=== PATIENT | female | born 1960 | race Caucasian/White ===

== ENCOUNTER 2018-06-14 00:40 | Day surgery (SDC) | payer OTHER, MEDICAID ==
[2018-06-12 11:36] LABS: BASOPHIL % 0.9 % (0.0-0.2); EOSINOPHIL # 0.1 10^3/uL (0.0-0.2); EOSINOPHIL % 1.9 % (0.0-5.0); LYMPHOCYTES # 1.5 10^3/uL (1.0-4.8); LYMPHOCYTES % 35.9 % (24.0-44.0); MEAN CELL HGB 31.3 pg (26-34); MEAN CELL HGB CONCENTRATION 34.2 g/dL (33-37); MEAN CORP VOLUME 91.4 fL (78-100); MONOCYTES # 0.4 10^3/uL (0.3-0.8); MONOCYTES % 10.3 % (5.0-12.0); NEUTROPHIL # 2.2 10^3/uL (1.8-7.7); NEUTROPHILS % 50.8 % (41.0-85.0); RED CELL DISTRIBUTION WIDTH 12.9 % (11.5-14.5); WHITE BLOOD CELL 4.3 10^3/uL (4.5-11.0)
[2018-06-12 11:56] VITALS: BP 121/67
--- NOTE | 2018-06-12 13:47 | PCM.EKG ---
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 Reading MD: Adeel Ashley Measurements Intervals [place] Rate: 78 P: 51 AR: 196 QRS: 34 QRSD: 94 T: 36 QT: 376 QTc: 428 Interpretive Statements Normal sinus rhythm Normal ECG No previous ECG available for comparison Electronically Signed On 06-12-2018 15:12:06 CDT by Adeel Ashley Please click the below link to view image of tracing.
[2018-06-12 14:14] LABS: CALCIUM 9.2 mg/dL (8.4-10.5); CARBON DIOXIDE 22.6 mmol/L (20.0-32)
[~2018-06-14] VITALS: Ht 185.4 cm; Wt 86.2 kg
[~2018-06-14 00:40] MED LIST: AMIT150T PO; ASPI-667 PO; CHRM1TAB PO; CYCL10TA2 PO; ESOM20CA PO; LEVO100T5 PO; LEVO50TA6 PO; LEVO75TA PO; LISI10TA2 PO; LORA0.5T PO; METF500T17 PO; METOPROLOL; MIRT30TA4 PO; MULT1TAB52 PO; PRAM0.255 PO; PREG200C PO; PREG75CA PO; PROP10TA PO; PROP20TA PO; PROP40TA PO; SIMV10TA3 PO; TURM500C9 PO
[2018-06-14] MEDS ORDERED: LACTATED RINGERS 1,000 ML ONE (05:30)
[2018-06-14] MEDS ORDERED: LACTATED RINGERS 1,000 ML IV SCH (07:00)
[2018-06-14 07:03] VITALS: BP 133/79
[2018-06-14] MEDS ORDERED: LUBI8CAP4 PO (07:05)
[2018-06-14] MEDS ORDERED: OMEP40CA6 PO (07:05)
[2018-06-14] MEDS ORDERED: DECADRON ONE (07:06)
[2018-06-14] MEDS ORDERED: ZOFRAN ONE (07:06)
[2018-06-14] MEDS ORDERED: TORADOL ONE (07:07)
[2018-06-14] MEDS ORDERED: SUBLIMAZE ONE (07:07)
[2018-06-14] MEDS ORDERED: NS 1000ML 1,000 ML ONE (07:07)
[2018-06-14] MEDS ORDERED: DIPRIVAN IV ONE (07:07)
[2018-06-14] MEDS ORDERED: VERSED ONE (07:07)
[2018-06-14] MEDS ORDERED: LIDOCAINE 2% VIAL ONE (07:07)
[2018-06-14] MEDS ORDERED: DILAUDID ONE (07:08)
[2018-06-14] MEDS ORDERED: SODIUM CHLORIDE IR ONE (07:12)
[2018-06-14] MEDS ORDERED: NS 3000ML IRR IR ONE (07:13)
[2018-06-14 09:05] VITALS: BP 92/45
[2018-06-14] MEDS ORDERED: EPHEDRINE SULFATE ONE (09:16)
[2018-06-14 09:20] VITALS: BP 116/54
[2018-06-14] MEDS ORDERED: DILAUDID IV PRN (09:30)
[2018-06-14] MEDS ORDERED: NS 1000ML 1,000 ML SCH (09:30)
[2018-06-14] MEDS ORDERED: SUBLIMAZE IV PRN (09:30)
[2018-06-14 09:35] VITALS: BP 121/54
[2018-06-14 09:50] VITALS: BP 121/54
[2018-06-14 10:04] VITALS: BP_SYST 110; BP_SYST 135; BP_DIAS 59; BP_DIAS 92
--- NOTE | 2018-06-19 20:36 | OPH ---
DATE OF SURGERY: 06/14/2018 PRIMARY SURGEON: Dr. Wall. CAR SALES ASSOCIATE: Basilia Montana. ANESTHESIA USED: General. PREOPERATIVE DIAGNOSIS: Postmenopausal bleeding with an inadequate endometrial biopsy. POSTOPERATIVE DIAGNOSIS: Atrophic endometrial lining. SURGICAL PROCEDURE PERFORMED: Hysteroscopy, dilation and curettage with fluid deficit of 20 mL. SPECIMENS COLLECTED: Endometrial curettings. ESTIMATED BLOOD LOSS: 10 mL. INDICATIONS: This patient had an episode of postmenopausal bleeding. She underwent workup with endometrial biopsy, which showed scant endometrial fragments, which were insufficient to rule out a diagnosis of malignancy. She was counseled on the risks and benefits of hysteroscopy to evaluate the endometrial cavity and she agreed to undergo the procedure. DESCRIPTION OF PROCEDURE: She was taken to the operating room where general anesthesia was administered without difficulty. She was prepared and draped in the dorsal lithotomy position in the normal sterile fashion. A weighted speculum was placed in the posterior aspect of the vagina and a right angle retractor was used to retract the anterior wall of the vagina. The cervix was visualized and grasped with a tenaculum. The uterus was sounded to a depth of 6 cm. Uterus was then dilated to accommodate a 10 mm hysteroscope. The hysteroscope was advanced through the cervix into the endometrial cavity. Normal saline was then used to distend the endometrial cavity. On hysteroscopy, the endometrium appeared atrophic. The right and left tubal ostia were visualized without difficulty and no suspicious lesions were seen. At this point, the hysteroscopy was complete. The hysteroscope was gently withdrawn from the endometrial cavity. A gentle sharp curettage was performed in all 4 quadrants and curettings were sent for pathology. At this point, no active bleeding was seen from the cervical os. The tenaculum was removed and hemostasis was noted at the tenaculum puncture sites. All instruments were then removed from the vagina. All procedure counts were correct x 2. The patient was awakened from anesthesia and taken to the recovery room in stable condition. JANAK WALL MD DR: LEX/jennifer JOB# [id number] RON
== END 2018-06-14 10:12 | disposition home or self-care (01) ==
LOC: SDC 00:40 → LND 06:00 → UNDOADMIN 06:00 → SDC 10:12
PROVIDERS: ATTEND Obstetrics & Gynecology
DX: N95.0 Postmenopausal bleeding (principal); N84.0 Polyp of corpus uteri; E11.9 Type 2 diabetes mellitus without complications; K21.9 Gastro-esophageal reflux disease without esophagitis; I10 Essential (primary) hypertension; F32.9 Major depressive disorder, single episode, unspecified; E66.3 Overweight; Z68.25 Body mass index [BMI] 25.0-25.9, adult; Z98.890 Other specified postprocedural states; Z88.8 Allergy status to other drugs, medicaments and biological substances; Z98.51 Tubal ligation status; Z83.3 Family history of diabetes mellitus; Z82.3 Family history of stroke; Z82.49 Family history of ischemic heart disease and other diseases of the circulatory system
CPT/HCPCS: 36415; 58558; 80048; 82948 ×2; 84443; 85025; 86885; 86900 ×3; 86901; 86921; 88305; 93005; J1100; J1885; J2001; J2250; J2405; J3010; J3490 ×2; J7030 ×3; J7120

== ENCOUNTER 2019-02-08 14:58 | Emergency (ER) | payer OTHER, MEDICAID ==
[~2019-02-08] VITALS: Ht 177.8 cm; Wt 93.0 kg
[~2019-02-08 14:58] MED LIST changes: +LUBI8CAP4 PO; +OMEP40CA6 PO
--- NOTE | 2019-02-08 14:58 | NUR ---
ARRIVAL PATIENT IN ROOM 6, STATES THAT SHE HAS BEEN HAVING ABDOMENAL PAIN FOR THE LAST 2 WEEKS, PATIENT HAS HAD IMAGINE DONE WITH DR. SANTANA. ASSESSMENT COMPELTED, AWAITING MD HERNANDEZ, CONNECTED TO ALL MONITORS.
[2019-02-08] MEDS ORDERED: ZOFRAN ODT SL STA (14:59)
[2019-02-08] MEDS ORDERED: PHENERGAN IM STA ×2 (14:59→17:33)
[2019-02-08 15:13] LABS: BASOPHIL % 0.5 % (0.0-0.2); EOSINOPHIL % 0.9 % (0.0-5.0); HEMOGLOBIN 15.4 g/dL (12.0-15.0); LYMPHOCYTES # 1.1 10^3/uL (1.0-4.8); LYMPHOCYTES % 26.7 % (24.0-44.0); MEAN CELL HGB 31.4 pg (26-34); MEAN CELL HGB CONCENTRATION 34.2 g/dL (33-37); MEAN CORP VOLUME 91.8 fL (78-100); MEAN PLATELET VOLUME 14.2 fL (7.8-11.0); MONOCYTES # 0.4 10^3/uL (0.3-0.8); MONOCYTES % 9.9 % (5.0-12.0); NEUTROPHIL # 2.6 10^3/uL (1.8-7.7); NEUTROPHILS % 61.8 % (41.0-85.0); RED CELL DISTRIBUTION WIDTH 13.1 % (11.5-14.5); WHITE BLOOD CELL 4.2 10^3/uL (4.5-11.0)
[2019-02-08] MEDS ORDERED: ZOFRAN ODT ONE (15:20)
[2019-02-08 15:31] LABS: HCG QUALITATIVE -RESTRICTLAB NEGATIVE (NEGATIVE)
[2019-02-08 15:32] LABS: CALCIUM 9.4 mg/dL (8.4-10.5); CARBON DIOXIDE 28.7 mmol/L (20.0-32)
--- NOTE | 2019-02-08 15:56 | ER.PDOC ---
General Chief Complaint: Requesting Medical Care Stated Complaint: ABDOMEN PAIN Time seen by MD: 16:00 Source: patient Exam Limitations: no limitations History of Present Illness Timing/Duration: 1 week Severity/Quality: moderate Radiation: epigastric Associated Symptoms: diarrhea, nausea/vomiting Exacerbated by: food Relieved By: nothing Allergies: Uncoded Allergies: MEDROL DOSE PACK (Allergy, Unknown, STIFFNESS THOUGH OUT BODY, 12/15/15) Home Meds Reported Medications Omeprazole (OMEPRAZOLE) 40 Mg Capsule.dr, 1 CAP PO DAILY, #30 CAP 3 Refills 06/14/18 Lubiprostone (AMITIZA) 8 Mcg Capsule, 1 CAP PO BID, #60 CAP 5 Refills 06/14/18 Chrm/Stanley/ Bt-Org Peel/Gr T (APPLE CIDER VINEGAR PLUS TB) 1 Each Tablet, 1 EACH PO BID, TABLET 06/12/18 Turmeric Root Extract (TURMERIC) 500 Mg Capsule, 500 MG PO BID, CAPSULE 06/12/18 Mirtazapine (MIRTAZAPINE) 30 Mg Tablet, 1 TAB PO HS, #30 TAB 1 Refill 06/12/18 Pramipexole Di-Hcl (MIRAPEX) 0.25 Mg Tablet, 1 TAB PO TID, #90 TAB 1 Refill 06/12/18 Pregabalin (LYRICA) 200 Mg Capsule, 1 CAP PO TID, #90 CAP 06/12/18 Simvastatin (SIMVASTATIN) 10 Mg Tablet, 1 TAB PO HS, #30 TAB 5 Refills 06/12/18 Metformin Hcl (METFORMIN HCL) 500 Mg Tablet, 1 TAB PO DAILY24, #60 TAB 3 Refills 06/12/18 Lorazepam (LORAZEPAM) 0.5 Mg Tablet, 1 TAB PO TID, #90 TAB 06/12/18 Amitriptyline Hcl (AMITRIPTYLINE HCL) 150 Mg Tablet, 1 TAB PO HS, #30 TAB 1 Refill 06/12/18 Propranolol Hcl (PROPRANOLOL HCL) 10 Mg Tablet, 1 TAB PO DAILY24, #60 TAB 1 Refill 06/12/18 Levothyroxine Sodium (SYNTHROID) 75 Mcg Tablet, 1 TAB PO DAILY, #30 TAB 5 Refills 06/12/18 Lisinopril (LISINOPRIL) 10 Mg Tablet, 1 TAB PO DAILY, #30 TAB 5 Refills 12/15/15 Aspirin (ASPIRIN) 81 Mg Tab.chew, 162 MG PO DAILY24, TAB.CHEW 07/09/14 Past Medical History Medical History: diabetes Surgical History: tubal LMP (females 10-50): postmenopause Reviewed Nursing Reviewed: Vital Signs, Abn. Noted All Other Systems: Reviewed and Negative Physical Exam General Appearance: No Apparent Distress, WD/WN Neck: Non-Tender, Full Range of Motion, Supple, Normal Inspection Respiratory: chest non-tender, lungs clear, normal breath sounds, no respiratory distress, no accessory muscle use Cardiovascular: Normal Peripheral Pulses, Regular Rate, Rhythm, No Edema, No Gallop, No JVD, No Murmur Gastrointestinal: Tenderness Back: Normal Inspection, No CVA Tenderness, No Vertebral Tenderness Extremities: Normal Range of Motion, Non-Tender, Normal Inspection, No Pedal Edema, No Calf Tenderness, Normal Capillary Refill, Pelvis Stable 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 (02/08/19 14:59) Hcg Qualitative Serum (02/08/19 14:59) Urinalysis (02/08/19 14:59) Ondansetron (Zofran Odt) (02/08/19 14:59) Promethazine Hcl (Phenergan) (02/08/19 14:59) Acetone,Serum (Ml) (02/08/19 15:01) Us Gallbladder (02/08/19 15:08) Administered Medications Medications (Trade) Dose Ordered Sig/Helen Route PRN Reason Start Time Stop Time Status Last Admin Dose Admin Ondansetron HCl (Zofran Odt) 4 mg STAT STAT SL 02/08/19 14:59 02/08/19 15:00 UNV 02/08/19 15:18 4 MG Laboratory Tests Test 02/08/19 15:09 White Blood Count 4.2 10^3/uL (4.5-11.0) L Red Blood Count 4.90 10^6/uL (4.00-5.20) Hemoglobin 15.4 g/dL (12.0-15.0) H Hematocrit 45.0 % (36.0-46.0) Mean Corpuscular Volume 91.8 fL (78-100) Mean Corpuscular Hemoglobin 31.4 pg (26-34) Mean Corpuscular Hemoglobin Concent 34.2 g/dL (33-37) Red Cell Distribution Width 13.1 % (11.5-14.5) Platelet Count 60 10^3/uL (150-400) L Mean Platelet Volume 14.2 fL (7.8-11.0) H Neutrophils (%) (Auto) 61.8 % (41.0-85.0) Lymphocytes (%) (Auto) 26.7 % (24.0-44.0) Monocytes (%) (Auto) 9.9 % (5.0-12.0) Neutrophils # (Auto) 2.6 10^3/uL (1.8-7.7) Lymphocytes # (Auto) 1.1 10^3/uL (1.0-4.8) Monocytes # (Auto) 0.4 10^3/uL (0.3-0.8) Absolute Immature Granulocyte (auto 0.01 10^3 u/L (0-2) Immature Granulocytes % 0.20 % (0.00-0.50) Eosinophils % 0.9 % (0.0-5.0) Basophils % 0.5 % (0.0-0.2) H Basophils # 0.0 10^3/uL (0.0-0.1) Eosinophil Count 0.0 10^3/uL (0.0-0.2) Prothrombin Time 9.5 SEC (9.8-11.9) L Prothrombin Time INR (Non-Therap) 1.0 PTT 23.9 SEC (24.67-30.72) Sodium Level 145 mmol/L (132-145) Potassium Level 3.8 mmol/L (3.6-5.2) Chloride Level 106.0 mmol/L (96-109) Carbon Dioxide Level 28.7 mmol/L (20.0-32) Anion Gap 14.1 Blood Urea Nitrogen 11 mg/dL (7-18) Creatinine 0.88 mg/dL (0.59-1.40) Estimated GFR () 79.6 (>/=60) BUN/Creatinine Ratio 12.0 Glucose Level 149 mg/dL (70-110) H Calcium Level 9.4 mg/dL (8.4-10.5) Total Bilirubin 0.5 mg/dL (0.2-1.0) Aspartate Amino Transferase (AST) 14 U/L (0-35) Alanine Aminotransferase (ALT) 18 U/L (12-78) Alkaline Phosphatase 100 U/L (50-136) Total Protein 6.8 g/dL (6.4-8.2) Albumin 3.6 g/dL (3.4-5.0) Globulin 3.2 Amylase Level 25 U/L (25-115) Lipase 80 U/L (114-286) L Serum HCG, Qualitative NEGATIVE (NEGATIVE) Acetone, Semi-Quantitative NEGATIVE Helicobacter pylori Screen NEGATIVE (NEGATIVE) Course Vitals & review Data Laboratory Tests Test 02/08/19 15:09 White Blood Count 4.2 10^3/uL Red Blood Count 4.90 10^6/uL Hemoglobin 15.4 g/dL Hematocrit 45.0 % Mean Corpuscular Volume 91.8 fL Mean Corpuscular Hemoglobin 31.4 pg Mean Corpuscular Hemoglobin Concent 34.2 g/dL Red Cell Distribution Width 13.1 % Platelet Count 60 10^3/uL Mean Platelet Volume 14.2 fL Neutrophils (%) (Auto) 61.8 % Lymphocytes (%) (Auto) 26.7 % Monocytes (%) (Auto) 9.9 % Neutrophils # (Auto) 2.6 10^3/uL Lymphocytes # (Auto) 1.1 10^3/uL Monocytes # (Auto) 0.4 10^3/uL Absolute Immature Granulocyte (auto 0.01 10^3 u/L Immature Granulocytes % 0.20 % Eosinophils % 0.9 % Basophils % 0.5 % Basophils # 0.0 10^3/uL Eosinophil Count 0.0 10^3/uL Prothrombin Time 9.5 SEC Prothrombin Time INR (Non-Therap) 1.0 Activated Partial Thromboplast Time 23.9 SEC Sodium Level 145 mmol/L Potassium Level 3.8 mmol/L Chloride Level 106.0 mmol/L Carbon Dioxide Level 28.7 mmol/L Anion Gap 14.1 Blood Urea Nitrogen 11 mg/dL Creatinine 0.88 mg/dL Estimated GFR () 79.6 BUN/Creatinine Ratio 12.0 Glucose Level 149 mg/dL Calcium Level 9.4 mg/dL Total Bilirubin 0.5 mg/dL Aspartate Amino Transf (AST/SGOT) 14 U/L Alanine Aminotransferase (ALT/SGPT) 18 U/L Alkaline Phosphatase 100 U/L Total Protein 6.8 g/dL Albumin 3.6 g/dL Globulin 3.2 Amylase Level 25 U/L Lipase 80 U/L Serum HCG, Qualitative NEGATIVE Acetone, Semi-Quantitative NEGATIVE Helicobacter pylori Screen NEGATIVE Current Medications Medications (Trade) Dose Ordered Sig/Helen PRN Reason Start Time Stop Time Status Last Admin Ondansetron HCl (Zofran Odt) 4 mg STAT STAT 02/08/19 14:59 02/08/19 15:00 UNV 02/08/19 15:18 Promethazine HCl (Phenergan) 25 mg STAT STAT 02/08/19 14:59 02/08/19 15:00 UNV Departure Time of Disposition: 19:00 Disposition: 01 HOME, SELF-CARE Impression: Primary Impression: Abdominal pain Condition: Improved Referrals: TIFFANIE BEDOLLA (PCP) PRIMARY CARE PROVIDER Duration or Time Spent with Pa: 1 hr BRENNEN GIBSON MD Feb 08, 2019 15:55
[2019-02-08] MEDS ORDERED: NORCO 10MG PO ONE (16:17)
[2019-02-08 16:44] LABS: APPEARANCE,URINE CLOUDY (CLEAR); BILIRUBIN,URINE NEGATIVE (NEGATIVE); UA COLOR YELLOW (YELLOW); UROBILINOGEN,URINE NORMAL (NEGATIVE)
--- NOTE | 2019-02-08 17:12 | DIREP ---
PROCEDURE:US ABDOMEN LIMITED (SINGLE ORGAN - QUAD) COMPARISON:None. INDICATIONS:upper abd pain TECHNIQUE:High resolution sonographic examination was performed of the abdomen. FINDINGS: RIGHT KIDNEY:11.1 x 4.9 x 4.9 cm. GALL BLADDER WALL:2 mm CBD:4 mm PANCREAS:Normal. LIVER:Increased echotexture consistent with steatosis. BILIARY:Normal appearing gallbladder and biliary tree. RIGHT KIDNEY:Negative. OTHER:Negative. CONCLUSION:Hepatic steatosis. Dictated by: Aj Kan M.D. on 02/08/2019 at 05:10 PM
[2019-02-08] MEDS ORDERED: TORADOL IM ONE (18:00)
[2019-02-08] MEDS ORDERED: TORADOL ONE (18:06)
[2019-02-08] MEDS ORDERED: PHENERGAN ONE (18:06)
[2019-02-08 19:00] VITALS: BP 124/52
[2019-02-08 19:16] VITALS: BP 124/52
== END 2019-02-08 19:07 | disposition home or self-care (01) ==
LOC: ER 14:58 → EDBD 14:58 → ER 19:07
DX: R10.9 Unspecified abdominal pain (principal); R19.7 Diarrhea, unspecified; R11.2 Nausea with vomiting, unspecified; E11.9 Type 2 diabetes mellitus without complications; Z79.82 Long term (current) use of aspirin; Z79.899 Other long term (current) drug therapy
CPT/HCPCS: 36415; 76705; 80053; 81000; 82010; 82150; 83690; 84703; 85025; 85610; 85730; 86677; 87086; 96372; 99285; J1885; J2550; Q0162; 87077; 87186

== ENCOUNTER → 2019-02-28 | Outpatient (CLI) | payer MEDICARE, MEDICAID ==
--- NOTE | 2019-02-28 17:18 | DIREP ---
PROCEDURE:NM GALLBLADDER SCAN/BALDERRAMA COMPARISON:[facility], CT, CT ABD/PELVIS W/ CONTRAST, 02/06/2019, 02:58 PM. [facility], , US ABDOMEN LIMITED(SINGLE ORGAN-QUAD), 02/08/2019, 04:36 PM. INDICATIONS:R10.9 ABD PAIN TECHNIQUE:After obtaining the patient's consent, radiopharmaceutical was injected and images obtained sequentially for 45 minutes. An 8 oz ensure plus nutritional drank was then ingested to induce endogenous CCK release and additional images were obtained for 60 minutes to evaluate gallbladder ejection fraction per PHARMACEUTICAL(S):8.2 mCi Tc-99m MAURO derivative IV FINDINGS: Normal hepatic uptake. The bile ducts are visualized by 20 minutes. The gallbladder is visualized by 25 minutes. The small bowel is visualized by 45 minutes . Following CCK administration, the patient experienced mild abdominal cramping and nausea, similar to her typical symptoms. . The gallbladder ejection fraction was 16%. Normal range 35% or greater. CONCLUSION: 1. Normal hepatocyte function. 2. Patent cystic and common ducts. 3. Low gallbladder ejection fraction, measuring 16%, with reproduction of the patient's typical symptoms following CCK administration. Findings are consistent with biliary dysfunction. Dictated by: Abdulaziz Burgess MD on 02/28/2019 at 05:14 PM
== END | disposition home or self-care (01) ==
LOC: RAD 08:41
PROVIDERS: ATTEND Emergency Medicine
DX: K82.8 Other specified diseases of gallbladder (principal)
CPT/HCPCS: 78227; A9537

== ENCOUNTER → 2019-03-17 | Outpatient (CLI) | payer MEDICARE, MEDICAID ==
[2019-03-14 13:47] LABS: BASOPHIL % 0.7 % (0.0-0.2); EOSINOPHIL # 0.1 10^3/uL (0.0-0.2); EOSINOPHIL % 1.7 % (0.0-5.0); HEMOGLOBIN 15.5 g/dL (12.0-15.0); LYMPHOCYTES # 1.5 10^3/uL (1.0-4.8); LYMPHOCYTES % 35.2 % (24.0-44.0); MEAN CELL HGB 31.3 pg (26-34); MEAN CELL HGB CONCENTRATION 33.6 g/dL (33-37); MEAN CORP VOLUME 93.1 fL (78-100); MONOCYTES # 0.4 10^3/uL (0.3-0.8); MONOCYTES % 10.4 % (5.0-12.0); NEUTROPHIL # 2.2 10^3/uL (1.8-7.7); RED CELL DISTRIBUTION WIDTH 13.1 % (11.5-14.5); WHITE BLOOD CELL 4.2 10^3/uL (4.5-11.0)
[2019-03-14 14:20] VITALS: BP 99/72
[2019-03-14 14:34] LABS: CARBON DIOXIDE 26.7 mmol/L (20.0-32)
--- NOTE | 2019-03-14 16:16 | PCM.EKG ---
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
[~2019-03-17] VITALS: Ht 177.8 cm; Wt 86.6 kg
[~2019-03-17] MED LIST changes: +ALBU90AE IH; +CELEBREX PO ONE; +DECADRON ONE; +DILAUDID ONE; +DIPH1TAB6 PO; +DIPRIVAN IV ONE; +ISOTON GENTAMICIN 80 MG/50 ML 50 ML IV ONE; +LACTATED RINGERS 1,000 ML ONE; +LIDOCAINE 2% VIAL ONE; +LOVENOX SQ ONE; +NEOSTIGMINE ONE; +NS 1000ML 1,000 ML IV SCH; +SENSORCAINE-MPF 0.25% VIAL ONE; +SODIUM CHLORIDE IR ONE; +SODIUM CHLORIDE IRR BAG 1,000 ML ONE; +SUBLIMAZE ONE; +TORADOL ONE; +TRAM50TA PO; +TYLENOL PO ONE; +VERSED ONE; +ZEMURON IV ONE; +ZOFRAN ONE
[2019-03-17 07:59] VITALS: BP 130/73
[2019-03-17 08:16] LABS: BASOPHIL % 0.5 % (0.0-0.2); EOSINOPHIL # 0.1 10^3/uL (0.0-0.2); EOSINOPHIL % 2.1 % (0.0-5.0); HEMOGLOBIN 15.5 g/dL (12.0-15.0); LYMPHOCYTES # 1.4 10^3/uL (1.0-4.8); LYMPHOCYTES % 36.2 % (24.0-44.0); MEAN CELL HGB 31.4 pg (26-34); MEAN CELL HGB CONCENTRATION 33.8 g/dL (33-37); MEAN CORP VOLUME 93.1 fL (78-100); MONOCYTES # 0.4 10^3/uL (0.3-0.8); MONOCYTES % 9.8 % (5.0-12.0); NEUTROPHILS % 50.4 % (41.0-85.0); PLATELET COUNT 52 10^3/uL (150-400); WHITE BLOOD CELL 3.9 10^3/uL (4.5-11.0)
[2019-03-17 09:14] LABS: HEMOGLOBIN 14.9 g/dL (12.0-15.0); MEAN CELL HGB 31.7 pg (26-34); MEAN CELL HGB CONCENTRATION 34.1 g/dL (33-37); RED CELL DISTRIBUTION WIDTH 12.9 % (11.5-14.5); WHITE BLOOD CELL 4.2 10^3/uL (4.5-11.0)
== END | disposition home or self-care (01) ==
LOC: LAB 08:00 → EDSTATUS 10:10
PROVIDERS: ATTEND Surgery
DX: K83.9 Disease of biliary tract, unspecified (principal); Z53.8 Procedure and treatment not carried out for other reasons; K21.9 Gastro-esophageal reflux disease without esophagitis; I12.9 Hypertensive chronic kidney disease with stage 1 through stage 4 chronic kidney disease, or unspecified chronic kidney disease; E11.42 Type 2 diabetes mellitus with diabetic polyneuropathy; E11.22 Type 2 diabetes mellitus with diabetic chronic kidney disease; N18.9 Chronic kidney disease, unspecified; K31.84 Gastroparesis; F32.9 Major depressive disorder, single episode, unspecified; F41.9 Anxiety disorder, unspecified; M54.5 Low back pain; F17.210 Nicotine dependence, cigarettes, uncomplicated; E66.3 Overweight; Z68.27 Body mass index [BMI] 27.0-27.9, adult; M54.2 Cervicalgia; E03.9 Hypothyroidism, unspecified; Z98.51 Tubal ligation status; Z98.890 Other specified postprocedural states; Z83.3 Family history of diabetes mellitus; Z82.49 Family history of ischemic heart disease and other diseases of the circulatory system; Z84.1 Family history of disorders of kidney and ureter; Z72.89 Other problems related to lifestyle; Z88.5 Allergy status to narcotic agent; Z88.8 Allergy status to other drugs, medicaments and biological substances
CPT/HCPCS: 36415 ×2; 80053; 85025 ×2; 85027; 85610; 85730; 93005; A4217 ×2; J1100; J1170; J1885; J2001; J2250; J2405; J2710; J3010; J3490 ×3; J7120

== ENCOUNTER 2019-04-09 19:16 | Emergency (ER) | payer MEDICARE, MEDICAID ==
[~2019-04-09] VITALS: Ht 180.3 cm; Wt 84.8 kg
[2019-04-09 19:16] VITALS: BP 125/73
[~2019-04-09 19:16] MED LIST changes: -CELEBREX PO ONE; -DECADRON ONE; -DILAUDID ONE; -DIPRIVAN IV ONE; -ISOTON GENTAMICIN 80 MG/50 ML 50 ML IV ONE; -LACTATED RINGERS 1,000 ML ONE; -LIDOCAINE 2% VIAL ONE; -LOVENOX SQ ONE; -NEOSTIGMINE ONE; -NS 1000ML 1,000 ML IV SCH; -SENSORCAINE-MPF 0.25% VIAL ONE; -SODIUM CHLORIDE IR ONE; -SODIUM CHLORIDE IRR BAG 1,000 ML ONE; -SUBLIMAZE ONE; -TORADOL ONE; -TYLENOL PO ONE; -VERSED ONE; -ZEMURON IV ONE; -ZOFRAN ONE
--- NOTE | 2019-04-09 20:40 | ER.PDOC ---
General Chief Complaint: Abdomen Pain Stated Complaint: GALLBLADDER PAIN Time seen by MD: 20:39 Source: patient, family, EMS, EMS notes reviewed Exam Limitations: no limitations History of Present Illness Initial Comments 58 Y/O F WITH HX OF CHRONIC GALL BLADDER PAIN X 3 MONTHS. HAS HAD GALLBLADDER SCAN WITH EF OF 18%. SEEN BY PCP YESTERDAY WITH UTI DXED , HAS NOT FILLED AB, SEEN BY [facility] THIS AM WITH NL PLT COUNT., PATIENT HAS NO FEVER, SAME EXACT PAIN AND AFTER EVAL PATIENT WANTS NO FURTHER AND WANTS TO GO HOME. LABS REVIEWED FROM [facility] TODAY, DRAWN AT 1329, NL WBC, NL CHEM, NL LFT'S . PATIENT GIVEN 75 MCG FENTANYL BY EMS. Timing/Duration: other Severity/Quality: moderate Radiation: RUQ Associated Symptoms: back pain Exacerbated by: other Relieved By: other Allergies: Coded Allergies: codeine (Verified Allergy, Mild, Nausea, 03/14/19) Uncoded Allergies: MEDROL DOSE PACK (Allergy, Unknown, STIFFNESS THOUGH OUT BODY, 12/15/15) Home Meds Reported Medications Diphenoxylate Hcl/Atropine (DIPHENOXYLATE-ATROPINE TABLET) 1 Each Tablet, 1 EACH PO Q4HR for DIARRHEA, TABLET 03/14/19 Albuterol Sulfate (Proair Respiclick) 90 Mcg Aer.pow.ba, 108 MCG IH Q6HR for ASTHMA, PUFF 03/14/19 Tramadol Hcl (TRAMADOL HCL) 50 Mg Tablet, 1 TAB PO TID for PAIN, #90 TAB 03/14/19 Omeprazole (OMEPRAZOLE) 40 Mg Capsule.dr, 1 CAP PO DAILY, #30 CAP 3 Refills 06/14/18 Lubiprostone (AMITIZA) 8 Mcg Capsule, 1 CAP PO BID, #60 CAP 5 Refills 06/14/18 Mirtazapine (MIRTAZAPINE) 30 Mg Tablet, 1 TAB PO HS, #30 TAB 1 Refill 06/12/18 Pregabalin (LYRICA) 200 Mg Capsule, 1 CAP PO TID, #90 CAP 06/12/18 Simvastatin (SIMVASTATIN) 10 Mg Tablet, 1 TAB PO HS, #30 TAB 5 Refills 06/12/18 Metformin Hcl (METFORMIN HCL) 500 Mg Tablet, 1 TAB PO DAILY24, #60 TAB 3 Refills 06/12/18 Lorazepam (LORAZEPAM) 0.5 Mg Tablet, 1 TAB PO TID, #90 TAB 06/12/18 Amitriptyline Hcl (AMITRIPTYLINE HCL) 150 Mg Tablet, 1 TAB PO HS, #30 TAB 1 Refill 06/12/18 Propranolol Hcl (PROPRANOLOL HCL) 10 Mg Tablet, 1 TAB PO DAILY24, #60 TAB 1 Refill 06/12/18 Levothyroxine Sodium (SYNTHROID) 75 Mcg Tablet, 1 TAB PO DAILY, #30 TAB 5 Refills 06/12/18 Lisinopril (LISINOPRIL) 10 Mg Tablet, 1 TAB PO DAILY, #30 TAB 5 Refills 12/15/15 Vital Signs First Vital Signs Date Time Temp Pulse Resp B/P (MAP) Pulse Ox O2 Delivery O2 Flow Rate FiO2 03/17/19 07:59 207.5 82 04/09/19 19:16 22 97 Room Air 04/09/19 19:16 125/73 (90) Last Vital Signs Date Time Temp Pulse Resp B/P (MAP) Pulse Ox O2 Delivery O2 Flow Rate FiO2 04/09/19 19:16 98.6 91 22 04/09/19 19:16 125/73 (90) 97 Room Air Past Medical History Medical History: high cholesterol, hypertension, thyroid disease Surgical History: appendectomy, tubal LMP (females 10-50): postmenopause Family History Significant Family History: no pertinent family hx Social History Smoking: other Alcohol Use: none Drug Use: none Constitutional: no symptoms reported EENTM: no symptoms reported Respiratory: no symptoms reported Cardiovascular: no symptoms reported Gastrointestinal: abdominal pain, vomiting Genitourinary: no symptoms reported Musculoskeletal: no symptoms reported Skin: no symptoms reported Psychiatric/Neurological: no symptoms reported Endocrine: no symptoms reported Hematologic/Lymphatic: no symptoms reported Physical Exam General Appearance: WD/WN, Anxious, Mild Distress HEENT: PERRL/EOMI, Normal ENT Inspection, TMs Normal, Pharynx Normal Neck: Non-Tender, Full Range of Motion, Supple, Normal Inspection Respiratory: chest non-tender, lungs clear, normal breath sounds, no respiratory distress, no accessory muscle use Cardiovascular: Normal Peripheral Pulses, Regular Rate, Rhythm, No Edema, No Gallop, No JVD, No Murmur Gastrointestinal: Normal Bowel Sounds, No Organomegaly, No Pulsatile Mass, Tenderness Back: Normal Inspection, No CVA Tenderness, No Vertebral Tenderness Extremities: Normal Range of Motion, Non-Tender, Normal Inspection, No Pedal Ed julian, No Calf Tenderness, Normal Capillary Refill, Pelvis Stable 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, No Motor/Sensory Deficits, Alert, Normal Mood/Affect, Oriented x 3 Skin: Normal Color, Warm/Dry Lymphatic: No Adenopathy Results/Orders Results/Orders Orders - SANDI SCHNEIDER DO Urinalysis (04/09/19 20:48) Ondansetron Hcl (Zofran) (04/09/19 20:59) Dicyclomine Hcl (Bentyl) (04/09/19 20:59) Ceftriaxone Sodium (Rocephin) (04/09/19 20:59) Urine Culture (04/09/19 20:15) Ondansetron Hcl (Zofran) (04/09/19 21:08) Dicyclomine Hcl (Bentyl Liquid) (04/09/19 21:08) Ceftriaxone Sodium (Rocephin) (04/09/19 21:08) 0.9 % Sodium Chloride (Ns 100ml) (04/09/19 21:08) Dicyclomine Hcl (Bentyl Liquid) (04/09/19 21:11) Dicyclomine Hcl (Bentyl) (04/09/19 21:13) Vital Signs Date Time Temp Pulse Resp B/P (MAP) Pulse Ox O2 Delivery O2 Flow Rate FiO2 04/09/19 19:16 98.6 91 22 04/09/19 19:16 98.6 91 22 125/73 (90) 97 Room Air 04/09/19 19:16 98.6 91 22 97 Room Air 03/17/19 07:59 207.5 82 Administered Medications Medications (Trade) Dose Ordered Sig/Helen Route PRN Reason Start Time Stop Time Status Last Admin Dose Admin Ceftriaxone Sodium (Rocephin) 1,000 mg STAT STAT IV 04/09/19 20:59 04/09/19 21:02 DC 04/09/19 21:22 1,000 MG Ondansetron HCl (Zofran) 4 mg STAT STAT IV 04/09/19 20:59 04/09/19 21:02 DC 04/09/19 21:22 4 MG Laboratory Tests Test 04/09/19 20:15 Urine Collection Type VOID Urine Color YELLOW (YELLOW) Urine Appearance SLIGHTLY CLOUDY (CLEAR) Urine Bilirubin NEGATIVE MG/DL (NEGATIVE) Urine Ketones NEGATIVE (NEGATIVE) Urine Specific [place] 1.025 (1.005-1.035) Urine pH 5 (5.0-6.0) Urine Protein NEGATIVE (NEGATIVE) Urine Urobilinogen NORMAL (NEGATIVE) Urine Nitrate POSITIVE (NEGATIVE) Urine Leukocyte Esterase NEGATIVE (NEGATIVE) Urine Blood NEGATIVE (NEGATIVE) Urine RBC 2-5 RBC/HPF (NONE SEEN) Urine WBC 2-5 WBC/HPF (0-2) Urine Squamous Epithelial Cells FEW #/HPF (FEW) Urine Calcium Oxalate Crystals MODERATE (NONE SEEN) Urine Bacteria MODERATE (NONE SEEN) H Urine Glucose NORMAL (NEGATIVE) Progress Progress BETTER AT D/C DIFF DX IN DETAIL , FOLLOW UP WITH YOUR DR, BLAND DIET. AT 2100 PATIENT REFUSES ANY FURTHER WORK UP, PATIENT DOES HAVE THE CAPACITY TO UNDERSTAND. Course Sepsis Screening Results: Posi: POSITIVE SEPSIS RISK Duration or Total Time Spent w: 1 hr Vitals & review Data Vital Sign - Last 24 Hours 03/17/19 04/09/19 04/09/19 04/09/19 07:59 19:16 19:16 19:16 Temp 207.5 98.6 98.6 98.6 Pulse 82 91 91 91 Resp 22 22 22 B/P (MAP) 125/73 (90) Pulse Ox 97 97 O2 Delivery Room Air Room Air Laboratory Tests Test 04/09/19 20:15 Urine Collection Type VOID Urine Color YELLOW Urine Appearance SLIGHTLY CLOUDY Urine Bilirubin NEGATIVE MG/DL Urine Ketones NEGATIVE Urine Specific [place] 1.025 Urine pH 5 Urine Protein NEGATIVE Urine Urobilinogen NORMAL Urine Nitrate POSITIVE Urine Leukocyte Esterase NEGATIVE Urine Blood NEGATIVE Urine RBC 2-5 RBC/HPF Urine WBC 2-5 WBC/HPF Urine Squamous Epithelial Cells FEW #/HPF Urine Calcium Oxalate Crystals MODERATE Urine Bacteria MODERATE Urine Glucose NORMAL Sepsis Infection Criteria Pres: None O2 Sat by Pulse Oximetry: 97 Departure Time of Disposition: 21:06 Disposition: 01 HOME, SELF-CARE Impression: Primary Impression: Abdominal pain Additional Impression: Chronic pain Condition: Stable Patient Instructions: Abdominal Pain Referrals: TIFFANIE BEDOLLA (PCP) PRIMARY CARE PROVIDER Additional Instructions: TO ED NEEDED, FOLLOW UP WITH YOUR DR'S, DRINK PLENTY OF FLUIDS, RX BENTYL, ZOFRAN, FILL AB FOR UTI. Duration or Time Spent with Pa: 15 MIN Problem Qualifiers SANDI SCHNEIDER DO Apr 09, 2019 20:40
[2019-04-09 20:53] LABS: BILIRUBIN,URINE NEGATIVE (NEGATIVE); UROBILINOGEN,URINE NORMAL (NEGATIVE)
[2019-04-09] MEDS ORDERED: BENTYL IM STA (20:59)
[2019-04-09] MEDS ORDERED: ROCEPHIN IV STA (20:59)
[2019-04-09] MEDS ORDERED: ZOFRAN IV STA (20:59)
[2019-04-09 21:01] LABS: APPEARANCE,URINE SLIGHTLY CLOUDY (CLEAR); UA COLOR YELLOW (YELLOW)
[2019-04-09] MEDS ORDERED: NS 100ML 100 ML IV ONE (21:08)
[2019-04-09] MEDS ORDERED: ZOFRAN ONE (21:08)
[2019-04-09] MEDS ORDERED: ROCEPHIN ONE (21:08)
[2019-04-09] MEDS ORDERED: BENTYL LIQUID ONE ×2 (21:08→21:11)
[2019-04-09] MEDS ORDERED: BENTYL ONE (21:13)
[2019-04-09] MEDS ORDERED: BENTYL PO STA (21:23)
[2019-04-09 21:45] VITALS: BP 128/78
--- NOTE | 2019-04-09 21:50 | NUR ---
IV IV removed, Tip intact. Placed cottonball over IV site, Secured with Coban. Instructed patient to remove coban on the arrival of home. Patient expressed understanding
[2019-04-09 21:57] VITALS: BP 128/78
== END 2019-04-09 21:53 | disposition home or self-care (01) ==
LOC: ER 19:16 → EDBD 19:16 → ER 21:53
DX: G89.29 Other chronic pain (principal); R10.11 Right upper quadrant pain; E07.9 Disorder of thyroid, unspecified; E78.00 Pure hypercholesterolemia, unspecified; N39.0 Urinary tract infection, site not specified; I10 Essential (primary) hypertension; Z79.899 Other long term (current) drug therapy; Z88.5 Allergy status to narcotic agent
CPT/HCPCS: 81000; 87086; 96374; 96375; 99284; J0696; J2405; J7050

== ENCOUNTER 2019-04-13 17:27 | Emergency (ER) | payer MEDICARE, MEDICAID ==
[~2019-04-13] VITALS: Ht 180.3 cm; Wt 84.8 kg
[2019-04-13 17:42] VITALS: BP 116/78
--- NOTE | 2019-04-13 17:43 | NUR ---
ARRIVAL PT ARRIVED TO ED C/O ABD PAIN THAT HAS BEEN PRESENT SINCE Sunday04/09/19. PT ALERT, ORIENTED. HAS GENERALIZED ABD CRAMPING. PT SEEN IN ER SUNDAY, HAD FOLLOW UP WITH DR. WELLS, BUT WAS NOT ABLE TO PROCEED WITH SX SCHDULED BY DR. KEYES R/T LOW BLOOD LEVELS ACCORDING TO PT. PALE IN COLOR, WARM TO TOUCH, SLIGHT DISTRESS NOTED. ASSISTED TO BED, CONNECTED TO BEDSIDE MONITOR.
[2019-04-13] MEDS ORDERED: NS 1000ML 1,000 ML IV ONE (18:00)
--- NOTE | 2019-04-13 18:07 | ER.PDOC ---
General Chief Complaint: Abdomen Pain Stated Complaint: ABDOMINAL PAIN Time seen by MD: 17:55 Source: patient Exam Limitations: no limitations History of Present Illness Initial Comments Pt with diffuse abdominal pain for several days, seen in ER on Sunday, and sent home with "pain pills", she was to have surgery By [facility] but, her platelets were down, then had recently blood work in [place] and that issue appears to have corrected. Timing/Duration: 1 week Severity/Quality: severe, cramping, sharpness Radiation: LUQ, LLQ, epigastric Exacerbated by: nothing Relieved By: nothing Allergies: Coded Allergies: codeine (Verified Allergy, Mild, Nausea, 03/14/19) Uncoded Allergies: MEDROL DOSE PACK (Allergy, Unknown, STIFFNESS THOUGH OUT BODY, 12/15/15) Home Meds Reported Medications Diphenoxylate Hcl/Atropine (DIPHENOXYLATE-ATROPINE TABLET) 1 Each Tablet, 1 EACH PO Q4HR for DIARRHEA, TABLET 03/14/19 Albuterol Sulfate (Proair Respiclick) 90 Mcg Aer.pow.ba, 108 MCG IH Q6HR for ASTHMA, PUFF 03/14/19 Tramadol Hcl (TRAMADOL HCL) 50 Mg Tablet, 1 TAB PO TID for PAIN, #90 TAB 03/14/19 Omeprazole (OMEPRAZOLE) 40 Mg Capsule.dr, 1 CAP PO DAILY, #30 CAP 3 Refills 06/14/18 Lubiprostone (AMITIZA) 8 Mcg Capsule, 1 CAP PO BID, #60 CAP 5 Refills 06/14/18 Mirtazapine (MIRTAZAPINE) 30 Mg Tablet, 1 TAB PO HS, #30 TAB 1 Refill 06/12/18 Pregabalin (LYRICA) 200 Mg Capsule, 1 CAP PO TID, #90 CAP 06/12/18 Simvastatin (SIMVASTATIN) 10 Mg Tablet, 1 TAB PO HS, #30 TAB 5 Refills 06/12/18 Metformin Hcl (METFORMIN HCL) 500 Mg Tablet, 1 TAB PO DAILY24, #60 TAB 3 Refills 06/12/18 Lorazepam (LORAZEPAM) 0.5 Mg Tablet, 1 TAB PO TID, #90 TAB 06/12/18 Amitriptyline Hcl (AMITRIPTYLINE HCL) 150 Mg Tablet, 1 TAB PO HS, #30 TAB 1 Refill 06/12/18 Propranolol Hcl (PROPRANOLOL HCL) 10 Mg Tablet, 1 TAB PO DAILY24, #60 TAB 1 Refill 06/12/18 Levothyroxine Sodium (SYNTHROID) 75 Mcg Tablet, 1 TAB PO DAILY, #30 TAB 5 Refills 06/12/18 Lisinopril (LISINOPRIL) 10 Mg Tablet, 1 TAB PO DAILY, #30 TAB 5 Refills 12/15/15 Vital Signs First Vital Signs Date Time Temp Pulse Resp B/P (MAP) Pulse Ox O2 Delivery O2 Flow Rate FiO2 04/09/19 21:57 209.5 88 04/13/19 17:35 20 95 Room Air 04/13/19 17:42 116/78 (91) Last Vital Signs Date Time Temp Pulse Resp B/P (MAP) Pulse Ox O2 Delivery O2 Flow Rate FiO2 04/13/19 17:42 98.3 87 20 116/78 (91) 95 Room Air Past Medical History Surgical History: no surgical history LMP (females 10-50): postmenopause Social History Smoking: non-smoker Alcohol Use: none Drug Use: none Constitutional: no symptoms reported EENTM: no symptoms reported Respiratory: no symptoms reported Cardiovascular: no symptoms reported Gastrointestinal: see HPI All Other Systems: Reviewed and Negative Physical Exam General Appearance: No Apparent Distress, Anxious HEENT: PERRL/EOMI, Normal ENT Inspection, TMs Normal, Pharynx Normal Neck: Non-Tender, Full Range of Motion, Supple, Normal Inspection Respiratory: chest non-tender, lungs clear, normal breath sounds, no respiratory distress, no accessory muscle use Cardiovascular: Normal Peripheral Pulses, Regular Rate, Rhythm, No Edema, No Gallop, No JVD, No Murmur Gastrointestinal: Normal Bowel Sounds, Soft, Tenderness (LLQ) Back: Normal Inspection, No CVA Tenderness, No Vertebral Tenderness Extremities: Normal Range of Motion, Non-Tender, Normal Inspection, No Pedal Edema, No Calf Tenderness, Normal Capillary Refill, Pelvis Stable 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 (04/13/19 17:59) Urinalysis (04/13/19 17:59) Saline Lock (04/13/19 17:59) 0.9 % Sodium Chloride (Ns 1000ml) (04/13/19 18:00) 0.9 % Sodium Chloride (Ns 1000ml) (04/13/19 18:40) Ketorolac Tromethamine (Toradol) (04/13/19 19:00) Vital Signs Date Time Temp Pulse Resp B/P (MAP) Pulse Ox O2 Delivery O2 Flow Rate FiO2 04/13/19 17:42 98.3 87 20 116/78 (91) 95 Room Air 04/13/19 17:35 98.3 87 20 95 Room Air 04/09/19 21:57 209.5 88 Administered Medications Medications (Trade) Dose Ordered Sig/Helen Route PRN Reason Start Time Stop Time Status Last Admin Dose Admin Sodium Chloride 1,000 ml @ 1,000 mls/hr Q1H ONCE IV 04/13/19 18:00 04/13/19 18:59 DC 04/13/19 18:41 1,000 MLS/HR Laboratory Tests Test 04/13/19 18:10 04/13/19 20:30 White Blood Count 4.3 10^3/uL (4.5-11.0) L Red Blood Count 4.68 10^6/uL (4.00-5.20) Hemoglobin 14.5 g/dL (12.0-15.0) Hematocrit 42.9 % (36.0-46.0) Mean Corpuscular Volume 91.7 fL (78-100) Mean Corpuscular Hemoglobin 31.0 pg (26-34) Mean Corpuscular Hemoglobin Concent 33.8 g/dL (33-37) Red Cell Distribution Width 13.3 % (11.5-14.5) Platelet Count 65 10^3/uL (150-400) L Mean Platelet Volume 13.0 fL (7.8-11.0) H Neutrophils (%) (Auto) 50.7 % (41.0-85.0) Lymphocytes (%) (Auto) 38.1 % (24.0-44.0) Monocytes (%) (Auto) 9.3 % (5.0-12.0) Neutrophils # (Auto) 2.2 10^3/uL (1.8-7.7) Lymphocytes # (Auto) 1.6 10^3/uL (1.0-4.8) Monocytes # (Auto) 0.4 10^3/uL (0.3-0.8) Absolute Immature Granulocyte (auto 0 10^3 u/L (0-2) Immature Granulocytes % 0.00 % (0.00-0.50) Eosinophils % 1.4 % (0.0-5.0) Basophils % 0.5 % (0.0-0.2) H Basophils # 0.0 10^3/uL (0.0-0.1) Eosinophil Count 0.1 10^3/uL (0.0-0.2) Prothrombin Time 9.9 SEC (9.4-11.5) Prothrombin Time INR (Non-Therap) 1.0 PTT 25.5 SEC (24.67-30.72) Sodium Level 140 mmol/L (132-145) Potassium Level 3.8 mmol/L (3.6-5.2) Chloride Level 105.0 mmol/L (96-109) Carbon Dioxide Level 26.1 mmol/L (20.0-32) Anion Gap 12.7 Blood Urea Nitrogen 13 mg/dL (7-18) Creatinine 0.88 mg/dL (0.59-1.40) Estimated GFR () 79.6 (>/=60) BUN/Creatinine Ratio 14.0 Glucose Level 104 mg/dL (70-110) Calcium Level 8.8 mg/dL (8.4-10.5) Total Bilirubin 0.3 mg/dL (0.2-1.0) Aspartate Amino Transferase (AST) 14 U/L (0-35) Alanine Aminotransferase (ALT) 11 U/L (12-78) L Alkaline Phosphatase 67 U/L (50-136) Total Protein 6.5 g/dL (6.4-8.2) Albumin 3.9 g/dL (3.4-5.0) Globulin 2.6 Amylase Level 33 U/L (25-115) Lipase 103 U/L (114-286) L Urine Collection Type UNKNOWN Urine Color COLORLESS (YELLOW) Urine Appearance CLEAR (CLEAR) Urine Bilirubin NEGATIVE MG/DL (NEGATIVE) Urine Ketones NEGATIVE (NEGATIVE) Urine Specific [place] 1.005 (1.005-1.035) Urine pH 6 (5.0-6.0) Urine Protein NEGATIVE (NEGATIVE) Urine Urobilinogen NORMAL (NEGATIVE) Urine Nitrate NEGATIVE (NEGATIVE) Urine Leukocyte Esterase NEGATIVE (NEGATIVE) Urine Blood NEGATIVE (NEGATIVE) Urine Glucose NORMAL (NEGATIVE) Course Sepsis Screening Results: Posi: POSITIVE SEPSIS RISK Duration or Total Time Spent w: 15 MIN Vitals & review Data Vital Sign - Last 24 Hours 04/09/19 04/13/19 04/13/19 21:57 17:35 17:42 Temp 209.5 98.3 98.3 Pulse 88 87 87 Resp 20 20 B/P (MAP) 116/78 (91) Pulse Ox 95 95 O2 Delivery Room Air Room Air Laboratory Tests Test 04/13/19 18:10 04/13/19 20:30 White Blood Count 4.3 10^3/uL Red Blood Count 4.68 10^6/uL Hemoglobin 14.5 g/dL Hematocrit 42.9 % Mean Corpuscular Volume 91.7 fL Mean Corpuscular Hemoglobin 31.0 pg Mean Corpuscular Hemoglobin Concent 33.8 g/dL Red Cell Distribution Width 13.3 % Platelet Count 65 10^3/uL Mean Platelet Volume 13.0 fL Neutrophils (%) (Auto) 50.7 % Lymphocytes (%) (Auto) 38.1 % Monocytes (%) (Auto) 9.3 % Neutrophils # (Auto) 2.2 10^3/uL Lymphocytes # (Auto) 1.6 10^3/uL Monocytes # (Auto) 0.4 10^3/uL Absolute Immature Granulocyte (auto 0 10^3 u/L Immature Granulocytes % 0.00 % Eosinophils % 1.4 % Basophils % 0.5 % Basophils # 0.0 10^3/uL Eosinophil Count 0.1 10^3/uL Prothrombin Time 9.9 SEC Prothrombin Time INR (Non-Therap) 1.0 Activated Partial Thromboplast Time 25.5 SEC Sodium Level 140 mmol/L Potassium Level 3.8 mmol/L Chloride Level 105.0 mmol/L Carbon Dioxide Level 26.1 mmol/L Anion Gap 12.7 Blood Urea Nitrogen 13 mg/dL Creatinine 0.88 mg/dL Estimated GFR () 79.6 BUN/Creatinine Ratio 14.0 Glucose Level 104 mg/dL Calcium Level 8.8 mg/dL Total Bilirubin 0.3 mg/dL Aspartate Amino Transf (AST/SGOT) 14 U/L Alanine Aminotransferase (ALT/SGPT) 11 U/L Alkaline Phosphatase 67 U/L Total Protein 6.5 g/dL Albumin 3.9 g/dL Globulin 2.6 Amylase Level 33 U/L Lipase 103 U/L Urine Collection Type UNKNOWN Urine Color COLORLESS Urine Appearance CLEAR Urine Bilirubin NEGATIVE MG/DL Urine Ketones NEGATIVE Urine Specific [place] 1.005 Urine pH 6 Urine Protein NEGATIVE Urine Urobilinogen NORMAL Urine Nitrate NEGATIVE Urine Leukocyte Esterase NEGATIVE Urine Blood NEGATIVE Urine Glucose NORMAL Current Medications Medications (Trade) Dose Ordered Sig/Helen PRN Reason Start Time Stop Time Status Last Admin Ketorolac Tromethamine (Toradol) 30 mg STAT PRN PAIN 4 - 6 04/13/19 19:00 05/13/19 18:59 Sepsis Infection Criteria Pres: None O2 Sat by Pulse Oximetry: 95 Departure Time of Disposition: 21:18 Disposition: 01 HOME, SELF-CARE Impression: Primary Impression: Abdominal pain Additional Impression: Biliary dyskinesia Condition: Stable Patient Instructions: Abdominal Pain Referrals: TIFFANIE BEDOLLA (PCP) PRIMARY CARE PROVIDER Duration or Time Spent with Pa: 20 Problem Qualifiers LUIZ NINA MD Apr 13, 2019 18:07
[2019-04-13 18:20] LABS: BASOPHIL % 0.5 % (0.0-0.2); EOSINOPHIL # 0.1 10^3/uL (0.0-0.2); EOSINOPHIL % 1.4 % (0.0-5.0); HEMOGLOBIN 14.5 g/dL (12.0-15.0); LYMPHOCYTES # 1.6 10^3/uL (1.0-4.8); LYMPHOCYTES % 38.1 % (24.0-44.0); MEAN CELL HGB CONCENTRATION 33.8 g/dL (33-37); MEAN CORP VOLUME 91.7 fL (78-100); MONOCYTES # 0.4 10^3/uL (0.3-0.8); MONOCYTES % 9.3 % (5.0-12.0); NEUTROPHIL # 2.2 10^3/uL (1.8-7.7); NEUTROPHILS % 50.7 % (41.0-85.0); RED CELL DISTRIBUTION WIDTH 13.3 % (11.5-14.5); WHITE BLOOD CELL 4.3 10^3/uL (4.5-11.0)
[2019-04-13 18:35] LABS: CALCIUM 8.8 mg/dL (8.4-10.5); CARBON DIOXIDE 26.1 mmol/L (20.0-32)
[2019-04-13] MEDS ORDERED: NS 1000ML 1,000 ML ONE (18:40)
--- NOTE | 2019-04-13 18:40 | NUR ---
IV INSERTED 22G TO LEFT ARM INSERTED. ASEPTIC TECHNIQUE OBSERVED.
[2019-04-13] MEDS ORDERED: TORADOL IV PRN (19:00)
[2019-04-13 20:50] LABS: BILIRUBIN,URINE NEGATIVE (NEGATIVE); UROBILINOGEN,URINE NORMAL (NEGATIVE)
[2019-04-13 20:51] LABS: APPEARANCE,URINE CLEAR (CLEAR); UA COLOR COLORLESS (YELLOW)
--- NOTE | 2019-04-13 21:12 | DIREP ---
PROCEDURE:CT ABDOMEN/PELVIS W/ CONTRAST COMPARISON:[facility], CT ABD/PELVIS W/ CONTRAST, 02/06/2019, 02:58 PM. INDICATIONS:Diffuse abdominal pain TECHNIQUE:Axial images were created through the abdomen and pelvis with non-ionic intravenous contrast material. Oral contrast was administered. Sagittal and coronal reconstructions were performed from source images. FINDINGS: LUNG BASES:No abnormality LIVER:No hepatic lesion on noncontrast exam. BILIARY:Gallbladder is unremarkable, no intra or extrahepatic biliary dilation. PANCREAS:Unremarkable. SPLEEN:Normal, nonenlarged. KIDNEYS:No renal mass on noncontrast exam. No hydronephrosis or collecting system stone identified. ADRENALS:Normal. AORTA/VASCULAR:Calcified atherosclerosis. No aneurysm. RETROPERITONEUM:No adenopathy or mass. BOWEL/MESENTERY:No evidence of obstruction. Macro appendix. Mild to moderate colonic stool burden may suggest constipation. ABDOMINAL WALL:Normal. No mass or hernia. URINARY BLADDER: Inherently limited evaluation of the wall; unremarkable for level of distension. PELVIS:Uterus present, no adnexal mass. No adenopathy. BONES:No bony lesion or fracture. Intervertebral disc height loss at L5-S1. OTHER:No free air or fluid. CONCLUSION: 1. Mild to moderate colonic stool burden may suggest constipation. Dictated by: Ramya Strong MD on 04/13/2019 at 09:08 PM
[2019-04-13 21:27] VITALS: BP 128/73
--- NOTE | 2019-04-13 21:30 | NUR ---
IV IV removed, tip intact. Placed cottonball over IV site, secured with coban. Instructed patient to remove coban when she arrives at home
[2019-04-13 21:34] VITALS: BP 128/73
== END 2019-04-13 21:31 | disposition home or self-care (01) ==
LOC: EDBD 17:27 → ER 17:27
DX: K82.8 Other specified diseases of gallbladder (principal); Z79.899 Other long term (current) drug therapy; Z88.5 Allergy status to narcotic agent
CPT/HCPCS: 36415; 74177; 80053; 81002; 82150; 83690; 85025; 85610; 85730; 99285; J7030; Q9965

== ENCOUNTER 2019-04-22 08:10 | Day surgery (SDC) | payer MEDICARE, MEDICAID ==
[~2019-04-22] VITALS: Ht 177.8 cm; Wt 86.6 kg
[2019-04-22] VITALS (13 sets, daily range): BP systolic 97–145; BP diastolic 41–83
[~2019-04-22 08:10] MED LIST changes: +CELEBREX ONE; +ISOTON GENTAMICIN 80 MG/50 ML 50 ML IV ONE; +NEURONTIN ONE; +NEURONTIN PO SCH; +NS 1000ML 1,000 ML ONE; +SODIUM CHLORIDE IR ONE; +SODIUM CHLORIDE IRR BAG 1,000 ML ONE; +TYLENOL PO ONE; +TYLENOL PO SCH; +WATER ONE
[2019-04-22 08:28] LABS: BASOPHIL % 0.5 % (0.0-0.2); EOSINOPHIL # 0.1 10^3/uL (0.0-0.2); EOSINOPHIL % 1.6 % (0.0-5.0); HEMOGLOBIN 14.4 g/dL (12.0-15.0); LYMPHOCYTES # 1.6 10^3/uL (1.0-4.8); LYMPHOCYTES % 40.9 % (24.0-44.0); MEAN CELL HGB 31.9 pg (26-34); MEAN CELL HGB CONCENTRATION 33.9 g/dL (33-37); MONOCYTES # 0.4 10^3/uL (0.3-0.8); MONOCYTES % 10.2 % (5.0-12.0); NEUTROPHIL # 1.8 10^3/uL (1.8-7.7); NEUTROPHILS % 46.8 % (41.0-85.0); RED CELL DISTRIBUTION WIDTH 12.9 % (11.5-14.5); WHITE BLOOD CELL 3.8 10^3/uL (4.5-11.0)
[2019-04-22 08:29] LABS: MEAN PLATELET VOLUME 13.2 fL (7.8-11.0)
[2019-04-22] MEDS ORDERED: TYLENOL PO ONE (08:30)
[2019-04-22] MEDS ORDERED: NS 1000ML 1,000 ML IV SCH (08:30)
[2019-04-22] MEDS ORDERED: CELEBREX PO ONE (08:30)
[2019-04-22] MEDS ORDERED: NEOSTIGMINE ONE (10:10)
[2019-04-22] MEDS ORDERED: DECADRON ONE (10:10)
[2019-04-22] MEDS ORDERED: ZEMURON IV ONE (10:10)
[2019-04-22] MEDS ORDERED: ZOFRAN ONE (10:10)
[2019-04-22] MEDS ORDERED: DILAUDID ONE (10:11)
[2019-04-22] MEDS ORDERED: DIPRIVAN IV ONE (10:12)
[2019-04-22] MEDS ORDERED: SUBLIMAZE ONE (10:12)
[2019-04-22] MEDS ORDERED: LIDOCAINE 2% VIAL ONE (10:12)
[2019-04-22] MEDS ORDERED: VERSED ONE (10:12)
[2019-04-22] MEDS ORDERED: WATER ONE (11:03)
[2019-04-22] MEDS ORDERED: ZOFRAN IV PRN ×2 (12:00→12:30)
[2019-04-22] MEDS ORDERED: MORPHINE SULFATE IV PRN (12:00)
[2019-04-22] MEDS ORDERED: NORCO 5MG PO PRN (12:00)
[2019-04-22] MEDS ORDERED: PHENERGAN IV PRN ×2 (12:00→12:30)
[2019-04-22] MEDS ORDERED: VENTOLIN IH PRN (12:30)
[2019-04-22] MEDS ORDERED: DILAUDID IV PRN (12:30)
[2019-04-22] MEDS ORDERED: BENADRYL IV PRN (12:30)
--- NOTE | 2019-04-22 13:26 | OPH ---
DATE OF SURGERY: PREOPERATIVE DIAGNOSES: 1. Biliary dyskinesia with symptoms. 2. Dyspepsia. 3. History of thrombocytopenia. POSTOPERATIVE DIAGNOSES: 1. Chronic acalculous cholecystitis. 2. Gastritis. 3. Thrombocytopenia. SURGEON: Prasanth Deleon DO SPLIT [employer] DRUM ROOM SUPERVISOR: OR staff. ANESTHESIA: General by Abiel Gallegos CRNA plus local used on the field. PROCEDURES PERFORMED: Laparoscopic-assisted cholecystectomy and esophagogastroduodenoscopy with biopsy. SPECIMENS: 1. Gallbladder. 2. Gastric mucosa, both to Path. ESTIMATED BLOOD LOSS: 23 mL. COUNTS: At the completion of the case, the counts were correct per OR staff. INDICATIONS FOR OPERATION: The patient is a 58-year-old female who has been seen on multiple occasions regarding biliary dyskinesia and also dyspepsia symptoms. Previously, she was scheduled for surgery and delayed because of thrombocytopenia. She has been seen by Hematology, noted to have normal platelet count when she was evaluated by them last week and subsequently scheduled for surgery today. Initial platelet count in the ED here was low; however, the laboratory collected 2 specimens and one was citrate, appeared to be normal and on peripheral smear evaluation, she was noted to have platelet clumping likely indicating a normal count. Subsequently after discussion with the patient, she was informed of associated risks, benefits, alternatives including increased risk for bleeding and informed consent was clarified. At time of procedure, she was taken to the operative suite and placed in supine position. After time-out was completed, general anesthesia was obtained, her abdomen was prepped and draped in normal fashion. Local was used to anesthetize the periumbilical region. Incision was created and 5 mm trocar was introduced into the abdomen with Endo camera visualization. Once in the abdomen, pneumoperitoneum was induced with 14 mmHg. Next, with camera visualization, 5 mm trocar was placed in the epigastrium. One was placed in the right upper quadrant laterally, one was placed in the midline. The gallbladder was retracted and exposed. There were noted to be adhesions in omentum and body of the gallbladder. These were taken down using electrocautery. Some bleeding identified in the omentum was controlled with electrocautery. After the adhesions were mobilized, attention was directed towards the infundibulum and gentle dissection was made to isolate the cystic duct. Once cystic duct was clearly isolated, the neck of the gallbladder was clipped twice proximally and once distally and divided sharply. Further dissection was made to isolate cystic artery. Once it was clearly identified, it was clipped twice proximally and once distally and divided sharply. The gallbladder was then removed from the liver bed using electrocautery. Once completely removed, it was placed in EndoCatch bag, removed through the epigastric trocar and passed to backtable. Trocar was reinserted. The gallbladder fossa was irrigated with sterile saline and inspected for bleeding. Any bleeding identified was controlled with electrocautery. Once meticulous hemostasis was noted, irrigation and suction and closure was pursued. Prior to closure, all 4 trocar sites were localized using a combination of Marcaine and Exparel. The camera was placed in the superior trocar and 3 inferior trocars were removed with camera visualization and was removed with no bleeding. Superior trocar was removed with camera visualization through trocar tract. There was noted to be no bleeding. Four skin incisions were closed with 4-0 Monocryl. The patient was cleaned. Steri-Strips and Band-Aids were applied. Drapes were removed. The patient remained anesthetized. Esophagogastroduodenoscope was advanced transorally with pneumoinsufflation distally in second portion of duodenum. Once the duodenum was adequately visualized, camera was slowly withdrawn to facilitate visualization of the duodenal bulb and the pylorus. Pylorus shows minimal gastritis and biopsies were obtained. The retroflexed maneuver was performed. The cardia and fundus were within normal limits. Camera was reduced. Good hemostasis noted. Stomach was decompressed. Scope was slowly withdrawn. Distal, mid and proximal esophagus within normal limits. Vocal cords were not visualized as an endotracheal tube is in place. The camera was removed, procedure was discontinued. The patient tolerated these procedures well. There were no acute complications noted. At this time, she was in stable condition to the recovery room. Prasanth Deleon DO DR: SADAF/jennifer JOB# [id number] CC: Dr. Dioni Amaro
[2019-04-22 15:03] LABS: BASOPHIL % 0.2 % (0.0-0.2); HEMOGLOBIN 13.6 g/dL (12.0-15.0); LYMPHOCYTES # 0.7 10^3/uL (1.0-4.8); LYMPHOCYTES % 12.6 % (24.0-44.0); MEAN CELL HGB 31.6 pg (26-34); MEAN CELL HGB CONCENTRATION 33.5 g/dL (33-37); MEAN CORP VOLUME 94.4 fL (78-100); MEAN PLATELET VOLUME 12.6 fL (7.8-11.0); MONOCYTES # 0.1 10^3/uL (0.3-0.8); MONOCYTES % 2.2 % (5.0-12.0); NEUTROPHILS % 84.8 % (41.0-85.0); WHITE BLOOD CELL 5.9 10^3/uL (4.5-11.0)
[2019-04-22] MEDS ORDERED: EXPAREL 266 MG/20 ML VIAL IJ ONE (15:15)
[2019-04-22] MEDS ORDERED: NS 1000ML 1,000 ML ONE (15:23)
== END 2019-04-22 16:29 | disposition home or self-care (01) ==
LOC: SURG 08:10
PROVIDERS: ATTEND Surgery
DX: K82.8 Other specified diseases of gallbladder (principal); K81.1 Chronic cholecystitis; D69.6 Thrombocytopenia, unspecified; K29.70 Gastritis, unspecified, without bleeding; I12.9 Hypertensive chronic kidney disease with stage 1 through stage 4 chronic kidney disease, or unspecified chronic kidney disease; N18.9 Chronic kidney disease, unspecified; E11.22 Type 2 diabetes mellitus with diabetic chronic kidney disease; K21.9 Gastro-esophageal reflux disease without esophagitis; E11.40 Type 2 diabetes mellitus with diabetic neuropathy, unspecified; F17.210 Nicotine dependence, cigarettes, uncomplicated; E66.3 Overweight; Z68.27 Body mass index [BMI] 27.0-27.9, adult; Z88.5 Allergy status to narcotic agent; Z88.8 Allergy status to other drugs, medicaments and biological substances; Z98.890 Other specified postprocedural states; Z79.899 Other long term (current) drug therapy; Z79.84 Long term (current) use of oral hypoglycemic drugs; Z79.82 Long term (current) use of aspirin; Z82.49 Family history of ischemic heart disease and other diseases of the circulatory system; Z82.3 Family history of stroke; Z83.3 Family history of diabetes mellitus
CPT/HCPCS: 36415; 43239; 47562; 82948 ×2; 85025 ×2; 86900; 88304; 88305; A4217 ×2; J1100; J1170; J2001; J2250; J2405; J2710; J3010; J3490 ×2; J7030 ×2; C9290; J8499

== ENCOUNTER → 2019-09-01 | Outpatient (CLI) | payer MEDICARE, MEDICAID ==
[~2019-09-01] MED LIST changes: -CELEBREX ONE; -ISOTON GENTAMICIN 80 MG/50 ML 50 ML IV ONE; -NEURONTIN ONE; -NEURONTIN PO SCH; -NS 1000ML 1,000 ML ONE; +OMEP40CA41 PO; -OMEP40CA6 PO; +SIMV10TA18 PO; -SIMV10TA3 PO; -SODIUM CHLORIDE IR ONE; -SODIUM CHLORIDE IRR BAG 1,000 ML ONE; -TYLENOL PO ONE; -TYLENOL PO SCH; -WATER ONE
--- NOTE | 2019-09-01 15:03 | DIREP ---
PROCEDURE:MRI SPINE LUMBAR W/O COMPARISON:[facility], CT, CT ABD/PELVIS W/ CONTRAST, 04/13/2019, 08:32 PM. INDICATIONS:Dorsalgia TECHNIQUE:A comprehensive examination was performed utilizing a variety of imaging planes and imaging parameters to optimize visualization of suspected pathology. Images were performed without intravenous gadolinium contrast. FINDINGS: ALIGNMENT:Normal. VERTEBRA:No fracture, pars defect, or osseous lesion. CORD/CAUDA EQUINA:Normal size, contour, and signal intensity. PARASPINAL AREA:Normal with no visible mass. LUMBAR DISC LEVELS T12-L1:No significant disc/facet abnormality, spinal stenosis, or foraminal stenosis. L1-L2:No significant disc/facet abnormality, spinal stenosis, or foraminal stenosis. L2-L3: There is bilateral facet arthropathy without canal or foraminal narrowing. L3-L4: There is disk desiccation. Mild diffuse disc bulge. Bilateral facet arthropathy. The AP diameter of the thecal sac is 8 mm. L4-L5: There is disk desiccation. Mild diffuse disc bulge. The AP diameter of the thecal sac is 10 mm Disc extends into and , along with bilateral facet arthropathy, causes mild bilateral neural foraminal narrowing L5-S1: There is disk desiccation. There is moderate loss of disc height. Diffuse disc bulge with traction osteophytosis. There is no significant canal stenosis there is bilateral facet arthropathy. Disc and facet cause moderate bilateral neural foraminal narrowing CONCLUSION: 1. Multilevel degenerative disc disease as above. There is mild canal narrowing at L3/4. There is bilateral neural foraminal narrowing at 4/5 and L5/S1 Dictated by: Alfred De León Jr. On 09/01/2019 at 02:39 PM
== END | disposition home or self-care (01) ==
LOC: RAD 13:07
PROVIDERS: ATTEND Anesthesiology Pain Medicine
DX: M47.26 Other spondylosis with radiculopathy, lumbar region (principal); M48.07 Spinal stenosis, lumbosacral region; M51.37 Other intervertebral disc degeneration, lumbosacral region; M51.36 Other intervertebral disc degeneration, lumbar region
CPT/HCPCS: 72148

== ENCOUNTER → 2020-09-01 | Outpatient (CLI) | payer MEDICARE, MEDICAID ==
[~2020-09-01] MED LIST changes: +MULT-419 PO; -MULT1TAB52 PO
--- NOTE | 2020-09-01 15:41 | DIREP ---
PROCEDURE:US SOFT TISSUE ABDOMINAL WALL COMPARISON:None. INDICATIONS:LLQ PAIN TECHNIQUE:Sonography of the soft tissues of the left lower quadrant/inguinal region was performed using grayscale and color Doppler imaging. FINDINGS: MASSES:None. FLUID COLLECTIONS:None. OTHER:The left ovary is incidentally noted measuring 1.5 x 1.2 x 2.3 cm. CONCLUSION:No sonographic abnormalities are demonstrated Dictated by: CEA Physician on 09/01/2020 at 02:40 PM ac
== END | disposition home or self-care (01) ==
LOC: RAD 13:03
PROVIDERS: ATTEND Obstetrics & Gynecology
DX: R10.32 Left lower quadrant pain (principal)
CPT/HCPCS: 76705